=== PATIENT | female | born 1960 | race Caucasian/White ===

== ENCOUNTER → 2020-10-25 13:55 | Outpatient (CLI) | payer BC, SELFPAY ==
[2020-10-25 16:12] LABS: AST(SGOT) 24 U/L (15-37); Alanine Aminotransfer ALT/SGPT 29 U/L (13-56); Albumin, Serum 3.7 g/dL (3.2-5.0); Alkaline Phosphatase 106 U/L (45-117); Anion Gap 6 (5-15); BUN 15 mg/dL (7-18); BUN/Creat Ratio 18.2 RATIO (10-20); Calcium,Total 9.1 mg/dL (8.5-10.1); Chloride 105 mmol/L (98-107); Cholesterol 157 mg/dL (200); Creatinine, Serum 0.82 mg/dL (0.55-1.02); EST Glomerular Filtration Rate 76 mL/min (>60); Est Glom Filt Rate - Afr Amer 91 mL/min (>60); Globulin 3.6 g/dL (2.2-4.2); Glucose 87 mg/dL (74-106); High Density Lipoprotein 66 mg/dL; Potassium 3.8 mmol/L (3.5-5.1); Protein, Total 7.3 g/dL (6.4-8.2); Sodium Level 139 mmol/L (136-145); Triglycerides 56 mg/dL; Very Low Density Lipoprotein 11 mg/dL (5-40)
[2020-10-26 14:40] LABS: Hemoglobin A1c 5.6 % (3.8-5.6)
== END ==
PROVIDERS: PCP Family Medicine; Visit Provider Family Medicine
DX: R73.01 Impaired fasting glucose (principal); E66.9 Obesity, unspecified; Z51.81 Encounter for therapeutic drug level monitoring
CPT/HCPCS: 36415; 80053; 80061; 83036

== ENCOUNTER 2020-12-14 11:25 | Outpatient (RCR) | payer BC, SELFPAY ==
[2020-12-14] MEDS: COVID-19 VACC, MRNA(PFIZER)/PF 30 MCG/0.3 ML SYRINGE IM (10:26)
[2021-01-04] MEDS: COVID-19 VACC, MRNA(PFIZER)/PF 30 MCG/0.3 ML SYRINGE IM (10:16)
== END 2020-12-14 23:59 ==
LOC: IMMUN 11:25
PROVIDERS: PCP Family Medicine; Visit Provider Family Medicine
DX: Z23 Encounter for immunization (principal)
CPT/HCPCS: 0001A; 0002A; 91300

== ENCOUNTER 2021-01-01 09:10 | Emergency (ER) | payer OTHER, SELFPAY ==
[2021-01-01] VITALS (9 sets, daily range): BP systolic 119–145; BP diastolic 53–98; PULSE 62–80; RESP 16–18; TEMP 35.5; O2SAT 93–99; BMI 31.1
[2021-01-01] MEDS: Ondansetron ODT 4 MG Tablet PO (09:31)
[2021-01-01] MEDS: fentaNYL 100 MCG/2 ML Ampul 50 MCG IM (09:31)
--- NOTE | 2021-01-01 09:44 | RAD_ITS ---
STUDY: X-RAY - RIGHT WRIST REASON FOR EXAM: Right wrist pain and swelling, right wrist injury from a fall. TECHNIQUE: 3 view(s) of the wrist were obtained. COMPARISON: None. FINDINGS: There is a distal radial fracture with dorsal displacement and dorsal angulation. Normal radiocarpal articulation. Normal distal radioulnar articulation. Normal carpal bones. Normal carpal articulations. Normal carpometacarpal articulation of the thumb. Normal second through fifth carpometacarpal articulations. Normal visualized metacarpal bones. There is soft tissue swelling. RAD/Wrist min 3 Views IMPRESSION: Distal radial fracture with dorsal displacement and dorsal angulation. Electronically Signed: Laci Starks MD at 10:01 EDT Tel , Service support ,
[2021-01-01] MEDS: Morphine 4 MG/ML Syringe IV ×2 (10:25→11:52)
[2021-01-01] MEDS: Propofol 200 MG/20 ML Vial IV BOLUS (10:35)
--- NOTE | 2021-01-01 11:15 | RAD_ITS ---
STUDY: X-RAY - RIGHT WRIST REASON FOR EXAM: Post reduction right distal radial fracture. TECHNIQUE: 3 view(s) of the wrist were obtained. COMPARISON: Radiographs obtained earlier the same day. FINDINGS: There is reduction of the distal radial fracture with anatomical alignment and position. Normal radiocarpal articulation. Normal distal radioulnar articulation. Normal carpal bones. Normal carpal articulations. Normal carpometacarpal articulation of the thumb. Normal second through fifth carpometacarpal articulations. Normal visualized metacarpal bones. There is an overlying cast. RAD/Wrist min 3 Views IMPRESSION: Reduction of distal radial fracture. Electronically Signed: Laci Starks MD at 11:43 EDT Tel , Service support ,
--- NOTE | 2021-01-01 11:37 | ED.VISSUMM ---
- ER Visit Summary Date of Service: 01/01/21 Chief Complaint: Right wrist pain History of Present Illness: The patient is a [address] Ladarius Mendoza. She is right-hand dominant. Reports just prior to coming [place] apartment she tripped over her shoes and had a fall onto an outstretched right hand. She denies any blow to the head or loss of consciousness. She not on anticoagulants. She denies neck, back, shoulder, or hip pain. Patient reports that she has right wrist pain is 8 out of 10 in severity. She denies any paresthesias distally. Physical Examination: Vitals: Stable. Afebrile. Neck: No vertebral tenderness. Full ROM without difficulty. Cleared by NEXUS criteria. Back: No vertebral tenderness. General: A&O x 3. NAD. Cardiovascular exam: Regular rate and rhythm, no murmur, rub or gallop. Respiratory exam: Chest nontender. No crepitus. Clear to auscultation bilaterally. No wheezes or stridor. Abdominal exam: Soft, nontender, nondistended, normal bowel sounds. No pain in RUQ or LUQ specifically. No peritoneal signs. Extremity: Obvious deformity of the right wrist. There is no break in the skin. She is neurovascular intact distally. Test Results: Clinical Impression(s) from Imaging Studies Wrist X-Ray 01/01/21 09:44 IMPRESSION: Distal radial fracture with dorsal displacement and dorsal angulation. Electronically Signed: Laci Starks MD at 10:01 EDT Tel , Service support , Repeat x-ray shows satisfactory reduction. Emergency Department Course and Treatment: Patient was initially given fentanyl IM and Zofran p.o. When the x-ray was obtained she had an IV placed. She was given morphine IV. She had sedation with propofol. Her wrist was reduced. She tolerated this well. Treatment Plan: Patient will be discharged with Ailyn and nathaniel. Instructed to follow-up with Dr Kiran in 2 days for another exam. Return to the emergency department for any worsening symptoms. Disposition: To home in improved and stable condition. Impression: 1. Right distal radius fracture. 2. Procedural sedation. 3. Reduction right distal radius. 4. Volar splint, plaster, fabricated. This note was generated with [employer] dictation software. It may contain incorrect words, spelling, and punctuation that were not noted in review of the chart prior to signing ED Disposition - Plan for ED Patient: Instructions: ED Colles Fracture, Reduction Required Prescriptions: Hydrocodone Bitart/Apap 5-325 [[place] 5MG-325MG] 1 tablet PO Q4H PRN PRN 2 Days #10 tablet PRN Reason: Pain Sennosides [Senna] 8.6 mg PO QHS #10 tablet Referrals: Ryan Arroyo DO [STAFF PHYSICIAN] - 2 Days
== END 2021-01-01 12:00 | disposition home or self-care (01) ==
PROVIDERS: Emergency Provider Emergency Medicine; PCP Family Medicine
DX: S52.501A Unspecified fracture of the lower end of right radius, initial encounter for closed fracture (principal); W01.10XA Fall on same level from slipping, tripping and stumbling with subsequent striking against unspecified object, initial encounter; Y93.9 Activity, unspecified; Y92.89 Other specified places as the place of occurrence of the external cause; Y99.9 Unspecified external cause status
CPT/HCPCS: 25605; 73110; 96372; 96374; 96375; 96376; 99283; J7030; A4216

== ENCOUNTER → 2022-02-04 | Outpatient (CLI) | payer BC, SELFPAY ==
[2022-02-11 13:51] LABS: HPV APTIMA, High Risk Negative (Negative)
== END | disposition home or self-care (01) ==
LOC: LABSPEC 02-05 08:51
PROVIDERS: PCP Family Medicine; Referring Provider Nurse Practitioner Women's Health; Visit Provider Nurse Practitioner Women's Health
DX: Z78.0 Asymptomatic menopausal state (principal)
CPT/HCPCS: 87624; 88175; G0145

== ENCOUNTER → 2022-05-31 | Outpatient (CLI) | payer BC, SELFPAY ==
--- NOTE | 2022-05-31 07:06 | BI_ITS ---
MAMMOGRAPHY - BILATERAL SCREENING REASON FOR EXAM: Female, 62 years old. Routine annual screening examination. PERTINENT HISTORY: Mother with breast cancer. TECHNIQUE: Digital bilateral breast jean pierre (3D mammographic acquisition) in the CC and MLO projections. 2-D mediolateral oblique (MLO) and craniocaudad (CC) views of both breasts were obtained. CAD: Full Field Digital Mammography with Computer Added Detection was performed. COMPARISON: Comparison is made with prior examination dated 05/03/2021. FINDINGS: Breast Composition: There are scattered areas of fibroglandular density. There are no dominant masses or suspicious calcifications. Stable small benign-appearing bilateral axillary lymph nodes. No other significant abnormalities are identified. There has been no significant change since the prior study. BI/SCRN MAMM (CAD)W/JEAN PIERRE BILAT IMPRESSION: Stable bilateral screening mammogram. Yearly follow-up mammogram recommended. (A) ASSESSMENT CATEGORY: BIRADS Category 2: Benign. A letter regarding these results will be sent to the patient by the facility within 30 days. Approximately 10% of breast cancers are not detected by mammography. A normal mammogram should not delay biopsy of a clinically suspicious abnormality. [id number] Electronically Signed: Que Dorman MD at 8:29 EDT ,
== END | disposition home or self-care (01) ==
LOC: OPBI 07:05
PROVIDERS: PCP Family Medicine; Visit Provider Nurse Practitioner Women's Health
DX: Z12.31 Encounter for screening mammogram for malignant neoplasm of breast (principal); Z80.3 Family history of malignant neoplasm of breast
CPT/HCPCS: 77063; 77067

== ENCOUNTER → 2023-01-13 | Outpatient (CLI) | payer BC, SELFPAY ==
[2023-01-13 10:21] LABS: Absolute Lymphocyte Count 1.36 X10^3/uL (0.83-4.51); Absolute Neutrophil Count 2.4 X10^3/uL (2.0-7.7); Basophil# 0.04 X10^3/uL; Basophil% 0.9 % (0-1); Eosinophil# 0.08 X10^3/uL; Eosinophils% 1.9 % (0-5); Hematocrit 44.1 % (37-47); Hemoglobin 13.9 g/dL (12.0-15.0); Lymphocyte # 1.36 X10^3/ul (0.83-4.51); Mean Corp Hgb Conc 31.5 g/dL (32-36); Mean Corpuscular Volume 98.2 fL (81-99); Mean Platelet Vol. 12.1 fl (6.2-12.0); Monocyte# 0.36 X10^3/uL; Monocyte% 8.5 % (0-10); NRBC Flagged by Analyzer 0 % (0-5); Neutrophil % 56.5 % (47-70); Platelet Count 208 K/mm3 (150-450); RBC Distribution Width CV 11.9 % (11.6-14.6); RBC Distribution Width SD 43.5 fl (35.1-43.9); Red Blood Count 4.49 M/mm3 (4.2-5.4); White Blood Count 4.3 K/mm3 (4.4-11.0)
[2023-01-13 10:37] LABS: AST(SGOT) 31 U/L (15-37); Alanine Aminotransfer ALT/SGPT 37 U/L (13-56); Albumin, Serum 3.4 g/dL (3.2-5.0); Alkaline Phosphatase 108 U/L (45-117); Anion Gap 5 (5-15); BUN 14 mg/dL (7-18); BUN/Creat Ratio 17.5 RATIO (10-20); Calcium,Total 8.6 mg/dL (8.5-10.1); Chloride 106 mmol/L (98-107); Cholesterol 174 mg/dL (200); EST Glomerular Filtration Rate 78 mL/min (>60); Est Glom Filt Rate - Afr Amer 94 mL/min (>60); Globulin 3.3 g/dL (2.2-4.2); Glucose 91 mg/dL (74-106); High Density Lipoprotein 63 mg/dL; Potassium 3.7 mmol/L (3.5-5.1); Protein, Total 6.7 g/dL (6.4-8.2); Sodium Level 137 mmol/L (136-145); Thyroid Stim Hormone (TSH) 3.43 uIU/mL (0.358-3.74); Triglycerides 76 mg/dL; Very Low Density Lipoprotein 15 mg/dL (5-40)
== END | disposition home or self-care (01) ==
LOC: MFPLAB 08:06
PROVIDERS: PCP Family Medicine; Visit Provider Family Medicine
DX: Z00.00 Encounter for general adult medical examination without abnormal findings (principal)
CPT/HCPCS: 36415; 80053; 80061; 84443; 85025

== ENCOUNTER → 2023-06-04 | Outpatient (CLI) | payer BC, SELFPAY ==
--- NOTE | 2023-06-04 07:52 | BI_ITS ---
MAMMOGRAPHY - BILATERAL SCREENING REASON FOR EXAM: Female, 63 years old. Routine annual screening examination. PERTINENT HISTORY: Mother with breast cancer. TECHNIQUE: Digital bilateral breast jean pierre (3D mammographic acquisition) in the CC and MLO projections. 2-D mediolateral oblique (MLO) and craniocaudad (CC) views of both breasts were obtained. CAD: Full Field Digital Mammography with Computer Added Detection was performed. COMPARISON: Comparison is made with prior study dated May 31, 2022. FINDINGS: Breast Composition: There are scattered areas of fibroglandular density. There are no dominant masses or suspicious calcifications. Stable fat-containing bilateral axillary lymph nodes. No other significant abnormalities are identified. There has been no significant change since the prior study. BI/SCRN MAMM (CAD)W/JEAN PIERRE BILAT IMPRESSION: Stable bilateral screening mammogram. Yearly follow-up mammogram recommended. (A) ASSESSMENT CATEGORY: BIRADS Category 2: Benign. A letter regarding these results will be sent to the patient by the facility within 30 days. Approximately 10% of breast cancers are not detected by mammography. A normal mammogram should not delay biopsy of a clinically suspicious abnormality. [id number] Electronically Signed: Que Dorman MD at 8:49 EDT ,
== END | disposition home or self-care (01) ==
LOC: OPBI 07:51
PROVIDERS: PCP Family Medicine; Referring Provider Nurse Practitioner Women's Health; Visit Provider Nurse Practitioner Women's Health
DX: Z12.31 Encounter for screening mammogram for malignant neoplasm of breast (principal)
CPT/HCPCS: 77063; 77067

== ENCOUNTER → 2024-02-13 | Outpatient (CLI) | payer BC, SELFPAY ==
[2024-02-13 08:45] LABS: Mucous, Urine 0 SEEN /hpf (<or=2+); Red Blood Cells-Urine 0 SEEN /hpf (0-5)
[2024-02-13 10:50] LABS: Absolute Lymphocyte Count 1.27 X10^3/uL (0.83-4.51); Absolute Neutrophil Count 2.4 X10^3/uL (2.0-7.7); Basophil# 0.03 X10^3/uL; Basophil% 0.7 % (0-1); Eosinophil# 0.09 X10^3/uL; Eosinophils% 2.2 % (0-5); Hematocrit 43.2 % (37-47); Hemoglobin 13.8 g/dL (12.0-15.0); Lymphocyte # 1.27 X10^3/ul (0.83-4.51); Lymphocyte % 30.6 % (19-41); Mean Corp Hgb Conc 31.9 g/dL (32-36); Mean Corpuscular Hgb 30.9 pg (27.0-32.0); Mean Corpuscular Volume 96.6 fL (81-99); Mean Platelet Vol. 12.1 fl (6.2-12.0); Monocyte# 0.38 X10^3/uL; Monocyte% 9.2 % (0-10); NRBC Flagged by Analyzer 0 % (0-5); Neutrophil # 2.37 X10^3/uL (2.7-7.7); Neutrophil % 57.1 % (47-70); Platelet Count 216 K/mm3 (150-450); RBC Distribution Width CV 12.2 % (11.6-14.6); RBC Distribution Width SD 43.3 fl (35.1-43.9); Red Blood Count 4.47 M/mm3 (4.2-5.4); White Blood Count 4.2 K/mm3 (4.4-11.0)
[2024-02-13 11:04] LABS: Color, Urine Yellow (Yellow); Glucose, Dipstick Normal (Normal); Ketone-Dipstick Negative (Negative); Leukocyte Esterase-Dipstick 500 /ul (Negative); Nitrite-Dipstick Negative (Negative); Occult Blood-Urine 10 /ul (Negative); Protein-Dipstick Negative (Negative); Urine Bilirubin Dipstick Negative (Negative); Urine Clarity Sl. Cloudy (Clear); Urine Urobilinogen Normal (Normal)
[2024-02-13 11:33] LABS: AST(SGOT) 29 U/L (15-37); Alanine Aminotransfer ALT/SGPT 28 U/L (13-56); Albumin, Serum 3.5 g/dL (3.2-5.0); Alkaline Phosphatase 107 U/L (45-117); Anion Gap 3 (5-15); BUN 16 mg/dL (7-18); BUN/Creat Ratio 18.4 RATIO (10-20); Calcium,Total 9.3 mg/dL (8.5-10.1); Chloride 108 mmol/L (98-107); Cholesterol 181 mg/dL (200); Creatinine, Serum 0.87 mg/dL (0.55-1.02); EST Glomerular Filtration Rate 70 mL/min (>60); Est Glom Filt Rate - Afr Amer 85 mL/min (>60); Globulin 3.4 g/dL (2.2-4.2); Glucose 105 mg/dL (74-106); High Density Lipoprotein 65 mg/dL; Potassium 4.2 mmol/L (3.5-5.1); Protein, Total 6.9 g/dL (6.4-8.2); Sodium Level 138 mmol/L (136-145); Triglycerides 70 mg/dL; Very Low Density Lipoprotein 14 mg/dL (5-40)
[2024-02-13 11:37] LABS: Bacteria 1+ /hpf (None Seen); Squamous Epithelial Cells - UA 5-10 SEEN /hpf (5-10); White Blood Cells 25-50 SEEN /hpf (0-5)
[2024-02-13 18:36] LABS: Hemoglobin A1c 5.6 % (3.8-5.6)
== END | disposition home or self-care (01) ==
LOC: MFPLAB 08:44
PROVIDERS: PCP Family Medicine; Visit Provider Family Medicine
DX: Z00.00 Encounter for general adult medical examination without abnormal findings (principal)
CPT/HCPCS: 36415; 80053; 80061; 81001; 83036; 85025

== ENCOUNTER → 2024-07-27 | Outpatient (CLI) | payer BC, SELFPAY ==
--- NOTE | 2024-07-27 07:33 | BI_ITS ---
MAMMOGRAPHY - BILATERAL SCREENING REASON FOR EXAM: Female, 64 years old. Routine annual screening examination. PERTINENT HISTORY: Mother with breast cancer. TECHNIQUE: Digital bilateral breast jean pierre (3D mammographic acquisition) in the CC and MLO projections. 2-D mediolateral oblique (MLO) and craniocaudad (CC) views of both breasts were obtained. CAD: Full Field Digital Mammography with Computer Added Detection was performed. COMPARISON: Comparison is made with prior study June 04, 2023 and May 31, 2022. FINDINGS: Breast Composition: There are scattered areas of fibroglandular density. There are no dominant masses or suspicious calcifications. Stable bilateral fat containing axillary lymph nodes. No other significant abnormalities are identified. There has been no significant change since the prior study. BI/SCRN MAMM (CAD)W/JEAN PIERRE BILAT IMPRESSION: Stable bilateral screening mammogram. Yearly follow-up mammogram recommended. (A) ASSESSMENT CATEGORY: BIRADS Category 2: Benign. A letter regarding these results will be sent to the patient by the facility within 30 days. Approximately 10% of breast cancers are not detected by mammography. A normal mammogram should not delay biopsy of a clinically suspicious abnormality. [id number] Electronically Signed: Que Dorman MD at 11:31 EDT ,
--- OUTSIDE RECORDS SUMMARY | 2024-07-27 07:36 | XMS RPT_ITS | CCD ---
Author Organization [place] [facility] Results Test Name Value Interpretation Reference Range Mike Mobley 05-03-2021 [facility] HNO ID: [id number] Author: Mammography Coordinator Service: ? Author Type: Physician Type: Letter Filed: 05/07/2021 11:36 PM Note Text: May 03, 2021 PID: [id number] Otoniel Bejarano [address] [place] [address] Dear Ms. Bejarano, We are pleased to inform you that the results of your recent breast imaging exam on 05/03/2021 are normal. Early detection of cancer is very important. We also understand recommendations regarding breast cancer screening are controversial. Please discuss with your primary care provider which strategy is best for you and whether a mammogram is right for you. Your imaging studies and report will be kept on file at [facility] as part of your permanent medical record and are available for your continuing care. Thank you for allowing us to help in meeting your health care needs. Sincerely, Dr. Preciado Interpreting Radiologist [facility] (Normal over 40) Normal [facility] SCREENING W TOMOon 05-03 [facility] SCREENING W JEAN PIERRE * * *Final Report* * * DATE OF EXAM: May 03 2021 11:30AM [facility] [id number] - [facility] SCREENING W JEAN PIERRE / PROCEDURE REASON: SCREENING MAMMOGRAM * * * * Physician Interpretation * * * * RESULT: #[id number] - [facility] SCREENING W JEAN PIERRE BILATERAL DIGITAL SCREENING MAMMOGRAM TOMOSYNTHESIS WITH CAD: 05/03/2021 HISTORY: Routine Screeening 3d Screening Mammogram with JEAN PIERRE - patient reports NO breast symptoms /priors available for comparison. RESULT: TECHNIQUE: The study was acquired using full field digital technology and interpreted from soft copy. Digital Breast Tomosynthesis (DBT) images were obtained and used to assist in the interpretation of this examination. Current study was also evaluated with a Computer Aided Detection (CAD). Comparison is made to exams dated: 01/06/2020 mammogram - [facility], 09/24/2018 mammogram, 01/06/2017 mammogram, 01/02/2016 mammogram, 09/21/2014 mammogram, and 09/01/2013 mammogram - [facility]. There are scattered fibroglandular elements in both breasts. No significant masses, calcifications, or other findings are seen in either breast. There has been no significant interval change. IMPRESSION: NEGATIVE There is no mammographic evidence of malignancy. A 1 year screening mammogram is recommended. The exam was reviewed by a staff physician. marquez Canales M.D., M.D./mikal:05/03/2021 11:07:20 [place] Carpenter(s): RT Marian(R)(M), [facility] letter sent: Normal over 40 Mammogram BI-RADS: 1 Negative Multiple national specialty organizations have released breast cancer screening guidelines for women at average risk for developing breast cancer - guidelines that are based on both evidence and opinion, yet differ on when to start and how often to screen for breast cancer. With representation from Breast Imaging, Internal Medicine, Women's Health, Family Medicine, and Medical/Surgical Oncology, the [facility] has carefully reviewed the data and reached the following consensus: 1) All women should engage in shared decision-making with their providers to decide when to start and how often to screen; 2) All women should have the opportunity to start screening mammography at age 40; 3) For women ages 45-55, we recommend annual screening mammograms; 4) For women ages 55 and over, we support both the transition from an annual to a biennial interval if this aligns more with patient's values and preferences, or continuation with annual screening; 5) All women should discuss with their providers when to stop screening mammograms. Intern: Mikal Transcribe Date/Time: May 03 2021 10:45A Dictated by: BOY VALVERDE MD This examination was interpreted and the report reviewed and electronically signed by: LAMIN PRECIADO MD on May 03 2021 11:07AM EST [id number] Normal [facility] Progress note 05-03-2021 Note Date & Type Note Facility 05-03-2021 Note HNO ID: [id number] Author: Raymon Avalos Service: ? Author Type: Claims Attorney Type: Progress Notes Filed: 05/03/2021 11:17 AM Note Text: Radiology Service Progress Note PATIENT NAME: Otoniel Bejarano DATE OF SERVICE: May 03, 2021 TIME: 11:17 AM PATIENT IDENTITY VERIFICATION COMPLETED USING TWO (2) IDENTIFIERS: Name and Date of confirmed by patient verbally. FALL SCREENING: Has the patient had 2 falls in the last year or 1 fall with injury or currently using an Ambulatory Assistive Device (Walker, Cane, Wheelchair, Crutches, etc.)? No PATIENT GENDER DATA: Female. status: : No status: NO. PATIENT RELEVANT IMPLANT DATA REVIEWED: Not Applicable RADIOLOGY DEPARTMENT: Mammography PERIPHERAL IV DATA: Not applicable SIGNED BY: Raymon Avalos May 03, 2021 11:17 AM [facility] Summary Purpose Family History No Family History Records Found Advance Directives No Advanced Directives Records Found Additional Source Comments INFORMATION SOURCE (unrecogn ized section and content) DATE CREATED AUTHOR 10/24/2021 [facility] FOR RECORDS PERTAINING TO PATIENTS WHO ARE OR HAVE BEEN ENROLLED IN A CHEMICAL DEPENDENCY/SUBSTANCEABUSE PROGRAM, SOME INFORMATION MAY BE OMITTED. This clinical summary was aggregated from multiple sources. Caution should be exercised in using it in the provision of clinical care. This summary normalizes information from multiple sources, and as a consequence, information in this document may materially change the coding, format and clinical context of patient data. In addition, data may be omitted in some cases. CLINICAL DECISIONS SHOULD BE BASED ON THE PRIMARY CLINICAL RECORDS. [facility] [employer] provides no warranty or guarantee of the accuracy or completeness of information in this document.
== END | disposition home or self-care (01) ==
LOC: OPBI 07:33
PROVIDERS: PCP Family Medicine; Referring Provider Nurse Practitioner Women's Health; Visit Provider Nurse Practitioner Women's Health
DX: Z12.31 Encounter for screening mammogram for malignant neoplasm of breast (principal); Z80.3 Family history of malignant neoplasm of breast
CPT/HCPCS: 77063; 77067

== ENCOUNTER → 2025-02-15 | Outpatient (CLI) | payer BC, SELFPAY ==
[2025-02-15 08:48] LABS: Mucous, Urine 0 SEEN /hpf (<or=2+); Red Blood Cells-Urine 0 SEEN /hpf (0-5)
[2025-02-15 10:40] LABS: Absolute Lymphocyte Count 1.47 X10^3/uL (0.83-4.51); Absolute Neutrophil Count 2.4 X10^3/uL (2.0-7.7); Basophil# 0.05 X10^3/uL; Basophil% 1.1 % (0-1); Eosinophil# 0.09 X10^3/uL; Hematocrit 42.5 % (37-47); Hemoglobin 13.5 g/dL (12.0-15.0); Lymphocyte # 1.47 X10^3/ul (0.83-4.51); Mean Corp Hgb Conc 31.8 g/dL (32-36); Mean Corpuscular Hgb 30.8 pg (27.0-32.0); Mean Corpuscular Volume 96.8 fL (81-99); Mean Platelet Vol. 12.2 fl (6.2-12.0); Monocyte# 0.43 X10^3/uL; Monocyte% 9.7 % (0-10); NRBC Flagged by Analyzer 0 % (0-5); Platelet Count 211 K/mm3 (150-450); RBC Distribution Width CV 12.3 % (11.6-14.6); RBC Distribution Width SD 44.2 fl (35.1-43.9); Red Blood Count 4.39 M/mm3 (4.2-5.4); White Blood Count 4.5 K/mm3 (4.4-11.0)
[2025-02-15 10:46] LABS: Color, Urine Yellow (Yellow); Glucose, Dipstick Normal (Normal); Ketone-Dipstick Negative (Negative); Leukocyte Esterase-Dipstick 500 /ul (Negative); Nitrite-Dipstick Negative (Negative); Occult Blood-Urine 25 /ul (Negative); Protein-Dipstick 15 mg/dl (Negative); Specific Gravity, Urine 1.015 (1.002-1.030); Urine Bilirubin Dipstick Negative (Negative); Urine Clarity Sl. Cloudy (Clear); Urine Urobilinogen Normal (Normal)
[2025-02-15 10:56] LABS: Bacteria 1+ /hpf (None Seen); Squamous Epithelial Cells - UA 0-5 SEEN /hpf (5-10); White Blood Cells 5-10 SEEN /hpf (0-5)
[2025-02-15 11:32] LABS: ALB/GLOB Ratio 1.3 RATIO (0.9-2.4); AST(SGOT) 29 U/L (<=31); Alanine Aminotransfer ALT/SGPT 21 U/L (<=34); Alkaline Phosphatase 109 U/L (35-104); Anion Gap 9 (5-15); BUN 16 mg/dL (4-19); BUN/Creat Ratio 19.1 RATIO (10-20); Calcium,Total 9.6 mg/dL (7.6-11.0); Carbon Dioxide 23.9 mmol/L (21.0-32.0); Chloride 106 mmol/L (98-108); Cholesterol 165 mg/dL (<=200); Creatinine, Serum 0.84 mg/dL (0.70-1.20); EST Glomerular Filtration Rate 78 (>60); Glucose 105 mg/dL (70-99); High Density Lipoprotein 57 mg/dL; Low Density Lipoprotein Calc. 94 mg/dL; Potassium 5.3 mmol/L (3.3-5.1); Protein, Total 7.1 g/dL (5.9-8.4); Sodium Level 139 mmol/L (133-145); Total Bilirubin 0.37 mg/dL (0.00-1.30); Triglycerides 72 mg/dL; Very Low Density Lipoprotein 14 mg/dL (5-40); cholesterol:hdl ratio screen 2.91
== END | disposition home or self-care (01) ==
LOC: MFPLAB 08:47
PROVIDERS: PCP Family Medicine; Referring Provider Family Medicine; Visit Provider Family Medicine
DX: Z00.00 Encounter for general adult medical examination without abnormal findings (principal)
CPT/HCPCS: 36415; 80053; 80061; 81001; 84443; 85025

== ENCOUNTER → 2025-02-18 | Outpatient (CLI) | payer BC, SELFPAY ==
[2025-02-18 11:10] LABS: Hemoglobin A1c 5.8 % (<=5.6)
== END | disposition home or self-care (01) ==
LOC: MFPLAB 08:27
PROVIDERS: PCP Family Medicine; Referring Provider Family Medicine; Visit Provider Family Medicine
DX: R94.6 Abnormal results of thyroid function studies (principal)
CPT/HCPCS: 36415; 83036; 84432; 84439; 86376; 86800